=== PATIENT | male | born 1990 | race African-American/Black ===

== ENCOUNTER 2017-10-31 21:09 | Emergency (ER) | payer SELFPAY ==
--- NOTE | 2017-10-31 22:14 | ED THROAT/DENTAL COMPLAINT ---
History of Present Illness General Chief Complaint: Sore Throat, Dental Pain Stated Complaint: SORE THROAT, FATIGUE,COUGHING,SWEATS Source: patient Exam Limitations: no limitations Vital Signs & Intake/Output Vital Signs & Intake/Output Vital Signs Date Time Temp Pulse Resp B/P B/P Pulse O2 O2 Flow FiO2 Mean Ox Delivery Rate 10/319 98.2 60 16 144/80 98 Room Air Room Air 10/315 96.7 57 16 160/87 97 Room Air ED Intake and Output 11/01 0000 10/31 1200 Intake Total Output Total Balance Patient 350 lb Weight Weight Reported by Patient Measurement Method Allergies Coded Allergies: No Known Allergies (10/31/17) Reconcile Medications Fluticasone Propionate (Flonase Allergy Relief) 50 MCG/ACTUATION SPRAY.SUSP 2 SPRAY ALICE DAILY PRN CONGESTION [MAGIC MOUTH WASH] 10 ML PO TID PRN SORE THROAT 1:1:1 EQUAL PARTS SWISH AND SWALLOW Meloxicam (Mobic) 15 MG TABLET 1 TAB PO DAILY PRN PAIN Triage Note: PT TO ED WITH C/O FEVERS/CHILLS, PRODUCTIVE COUGH, NECK SORENESS AND CHEST TIGHTNESS X 4 DAYS. Triage Nurses Notes Reviewed? yes Onset: Gradual Duration: constant Timing: recent history Injury Environment: home Severity: moderate Severity Numbers: 5 HPI: Patient is a 27-year-old male who presents emergent with a 2-3 day history of nasal congestion sore throat generalized weakness and fatigue and chills. Patient has positive sick contacts at home denies any chest pain arm pain jaw pain ear pain (Zeb Arita) Past History Travel History Traveled to [place] past 21 day No Medical History Any Pertinent Medical History? none Surgical History Surgical History: non-contributory Psychosocial History What is your primary language Yi Tobacco Use: Current Daily Use Daily Tobacco Use Amount/Type: =< 4 Cigarettes daily Family History Hx Contributory? No (Zeb Arita) Review of Systems Review of Systems Constitutional: Reports: see HPI. EENTM: Reports: see HPI. Respiratory: Reports: no symptoms. Cardiovascular: Reports: no symptoms. GI: Reports: no symptoms. Genitourinary: Reports: no symptoms. Musculoskeletal: Reports: no symptoms. Skin: Reports: no symptoms. Neurological/Psychological: Reports: no symptoms. Hematologic/Endocrine: Reports: no symptoms. Immunologic/Allergic: Reports: no symptoms. All Other Systems: Reviewed and Negative (Zeb Arita) Physical Exam Physical Exam General Appearance: no apparent distress, alert, comfortable Head: atraumatic Eyes: Bilateral: normal appearance. Ears: Bilateral: canal normal, Tympanic normal. Nose: normal inspection Mouth/Throat: normal mouth inspection, pharynx normal Neck: normal inspection, supple Cardiovascular/Respiratory: normal breath sounds, normal peripheral pulses, regular rate/rhythm Neurologic/Psych: no motor/sensory deficits, awake, alert Skin: intact, normal color, warm/dry Core Measures ACS in differential dx? No Sepsis Present: No Sepsis Focused Exam Completed? No (Zeb Arita) Progress Differential Diagnosis: carious tooth, epiglottitis, Ludwigs angina, meningitis, odontogenic abscess, kirt-tonsillar abscess, pharyngeal for. body, stomatitis/ gingivitis, strep pharyngitis, tooth fracture Plan of Care: Orders Procedure Date/time Status THROAT CULTURE W/QUICK STREP 10/31 2114 Active Patient looks well no apparent distress center criteria 0 rapid strep negative patient will be treated for consider viral syndrome (Zeb Arita) Departure Departure Disposition: HOME OR SELF CARE Condition: Stable Clinical Impression Primary Impression: Viral syndrome Referrals: Patient Has No Primary Care Dr (PCP/Family) Additional Instructions: As discussed begin the prescription Magic mouthwash for symptoms of sore throat, meloxicam for pain and inflammation and Flonase for congestion. Prescription is waiting at [facility]. If no better in 3 days. With her doctor. If symptoms worsen return to emergency room Departure Forms: Customer Survey General Discharge Information Prescriptions: Current Visit Scripts Meloxicam (Mobic) 1 TAB PO DAILY PRN PAIN #7 TAB Fluticasone Propionate (Flonase Allergy Relief) 2 SPRAY ALICE DAILY PRN CONGESTION #1 BOT [MAGIC MOUTH WASH] 10 ML PO TID PRN SORE THROAT #100 ML 1:1:1 EQUAL PARTS SWISH AND SWALLOW (Zeb Arita) PA/VOLUNTEER COORDINATOR Co-Sign Statement Statement: ED Attending supervision documentation- [] I saw and evaluated the patient. I have also reviewed all the pertinent lab results and diagnostic results. I agree with the findings and the plan of care as documented in the PA's/VOLUNTEER COORDINATOR's documentation. [x] I have reviewed the ED Record and agree with the PA's/VOLUNTEER COORDINATOR's documentation. [] Additions or exceptions (if any) to the PAs/VOLUNTEER COORDINATOR's note and plan are summarized below: [] (Jamari DALY,Ramesh Palmer)
[2017-10-31] MEDS ORDERED: MAGIC MOUTH WASH PO (22:33)
[2017-10-31] MEDS ORDERED: FLONASE ALLERG9.9 ML NAS (22:33)
[2017-10-31] MEDS ORDERED: MOBIC15 M1 PO (22:33)
[2017-10-31 22:49] VITALS: BP 144/80
== END 2017-10-31 22:50 ==
LOC: ERH 21:09
DX: B34.9 Viral infection, unspecified (principal); R07.89 Other chest pain